=== PATIENT | male | born 1945 | race Caucasian/White ===

== ENCOUNTER 2019-05-20 09:13 | Inpatient (IN) | payer OTHER ==
[2019-05-19 20:00] VITALS: BP 193/82
[~2019-05-20] VITALS: Ht 177.8 cm; Wt 102.3 kg
--- NOTE | ~2019-05-20 | HEMODYNAMI ---
PATIENT:ARELIS OTT MEDICAL RECORD: [id number] : 47 [id number] ADMISSION DATE: 05/20/19 Generatedon:05/21/201910:28 Patient name: ARELIS OTT Patient #: [id number] SSN: [id number] : 1945 Date of study: 05/21/2019 Page: Of Hemodynamic Procedure Report Patient Data Patient Demographics Procedure consent was obtained First Name: ARELIS Gender: Male Last Name: TRU : 1945 Middle Initial: JAREK Age: 73 year(s) Patient #: [id number] Race: SSN: [id number] Additional ID: [id number] Contact details Address: [address] [place] [address] State: [place] [facility] [place] [address] Past Medical History Allergies: No known allergies Admission Admission Data Admission Date: 05/20/2019 Admission Time: 11:35 Arrival Date: 05/21/2019 Arrival Time: 0:00 Admit Source: Emergency Insurance Payor: [facility] department [facility] Room #: D.2119 [facility] #: [id number] Height (in.): 70 BSA: 2.19 (m2) Height (cm.): 177.8 BMI: 32.28 (kg/m2) Weight (lbs.): 225 Weight (kg.): 102.06 Lab Results Lab Result Date: 05/21/2019 Lab Result Time: 10:00 Biochemistry Name Units Result Min Max BUN mg/dl 15 --(--*-)-- 7 18 Creatinine mg/dl 1.1 --(--*-)-- 0.6 1.3 CBC Name Units Result Min Max Hematocrit % 46.6 --(-*--)-- 42 54 Hemoglobin g/dl 16.5 --(--*-)-- 13.5 17.5 Procedure Procedure Types Cath Procedure Diagnostic Procedure LHC LHC w/Coronaries Sedation Charges Moderate Sedation up to 15 minutes PCI Procedure Coronary Stent Coronary Stent Initial Procedure Description Procedure Date Procedure Date: 05/21/2019 Procedure Start Time: 10:09 Procedure End Time: 10:24 Procedure Staff Name Function Narciso Herrera MD Performing Physician Екатерина Andujar RT Monitor Michele Artis RT Scrub Adrienne Cabezas RN Nurse Indication Non-Q wave NM CAD Procedure Data Cath Procedure Fluoroscopy Diagnostic fluoroscopy Total fluoroscopy Time: 4.7 time: 4.7 min min Diagnostic fluoroscopy Total fluoroscopy dose: dose: 1138 mGy 1138 mGy Contrast Material Contrast Material Type Amount (ml) Isovue 300 112 Entry Location Entry Primary Successful Side Size Upsize Upsize Entry Closure Rosa ccessful Closure Location (Fr) 1 (Fr) 2 (Fr) Remarks Device Remarks Radial Right 6 Fr Mechanical artery Short Compression Estimated blood loss: 5 ml Diagnostic catheters Device Type Used For End Catheter Placement DIAGNOSTIC Dolores 110cm 5 Multi-vessel Fr catheter ([id number]) Angiography Procedure Complications No complications Procedure Medications Medication Administration Route Dosage 0.9% NaCl I.V. 100 ml/hr Oxygen etCO2 Nasal cannula 2 l/min Lidocaine 2% added to field 20 Heparin Flush Bag added to field 2 bags (1000units/500ml NS) Radial Cocktail added to field 1 syringe (Verapamil 2mg/Nitro 400mcg/Heparin 1500units) Versed I.V. 2 mg Fentanyl I.V. 100 mcg Heparin Bolus I.V. 4000 units Hemodynamics Rest BSA: 2.19 (m2) O2 Consumption: Estimated: 256.98 (ml/min) O2 Consumption indexed : Estimated:117.34 (ml/min/m) Heart Rate: 75 (bpm) Pressure Samples Time Site Value (mmHg) Purpose Heart Use Rate(bpm) 10:12 LV 35/1,-1 Snapshot 82 Snapshots Pre Cath Intra NCS Post Cath Vital Signs Time Heart Resp SPO2 etCO2 NIBP (mmHg) Rhythm Pain Sedation Rate (ipm) (%) (mmHg) Status Level (bpm) 9:54:53 74 19 100 35.9 162/90(140) NSR 0 (11) 10(A) , No pain 9:59:31 77 18 99 38.9 176/90(139) NSR 0 (11) 10(A) , No pain 10:04:03 80 16 98 42 152/79(115) NSR 0 (11) 10(A) , No pain 10:08:40 79 16 97 25 147/80(115) NSR 0 (11) 10(A) , No pain 10:13:00 82 14 98 32.2 105/61(84) NSR 0 (11) 9(A) , No pain 10:17:59 82 13 98 27.6 Measuring NSR 0 (11) 9(A) , No pain 10:18:15 83 13 97 27.6 136/77(101) NSR 0 (11) 9(A) , No pain 10:22:42 82 16 97 28.4 145/83(110) NSR 0 (11) 10(A) , No pain Medications Time Medication Route Dose Verified Delivered Reason Not es Effectiveness by by 9:53:26 0.9% NaCl I.V. 100 Narciso Adrienne used for ml/hr Javier Cabezas hall monitor 9:53:32 Oxygen etCO2 2 l/min Narciso Adrienne used for Nasal Javier Cabezas procedure cannula RN 9:53:37 Lidocaine 2% added 20ml Narciso Narciso for local to vial Javier Herrera MD anesthetic field 9:53:41 Heparin Flush added 2 bags Narciso Narciso used for Bag to Javier Herrera MD procedure (1000units/500ml field NS) 9:53:47 Radial Cocktail added 1 Narciso Narciso used for (Verapamil to syringe Javier Herrera MD procedure 2mg/Nitro field 400mcg/Heparin 1500units) 10:08:23 Versed I.V. 2 mg Narciso Adrienne for sedation Javier Cabezas RN 10:08:34 Fentanyl I.V. 100 mcg Narciso Adrienne for sedation Javier Cabezas RN 10:17:00 Heparin Bolus I.V. 4000 Narciso Adrienne for stephanie ified units Javier Cabezas anticoagulation with Dr. JIMBO Herrera Procedure Log Time Note 9:31:38 Informed consent obtained and on chart 9:32:09 Patient Weight : 225 lbs 9:32:16 Patient Height : 70 inches 9:32:16 Insurance Payor : [facility] 9:32:29 Arrival Date: 05/21/2019 12:00:00 AM 9:34:23 Lab Result : Hemoglobin 16.5 g/dl 9:34:23 Lab Result : Creatinine 1.1 mg/dl 9:34:23 Lab Result : BUN 15 mg/dl 9:34:23 Lab Result : Hematocrit 46.6 % 9:35:31 Admit Source: Emergency department 9:35:46 ACC Patient presents with Non-STEMI CCS Anginal Class 4--Inability to carry out any physical activity w/o angina. Angina may occur at rest. 9:36:20 ACCPatient has been prescribed/administered the following anti-anginal medication within the last 2 weeks: Beta Kami, Calcium Channel Blockers 9:36:24 Procedure Status Urgent Heart Cath (IP). 9:36:26 Adrienne Cabezas RN sent for patient. Start room use. 9:38:42 Diagnostic Cath Status : Urgent 9:38:52 H&P Date Dictated: 05/20/2019 Within 30 days and on chart.. 9:39:04 Patient allergic to No known allergies 9:39:17 Indication : Non-Q wave NM 9:39:22 Indication : CAD 9:45:30 Time tracking: Call back (After hours or weekends) 9:45:37 Plan of Care:Hemodynamics will remain stable., Cardiac rhythm will remain stable., Comfort level will be maintained., Respiratory function will remain adequate., Patient/ family verbilizes understanding of procedure., Procedure tolerated without complication., Recovers from procedure without complications.. 9:45:41 Patient received from Med II to CCL 1 Alert and oriented. Tansferred to table in Supine position. 9:45:42 Warm blankets applied, and shyanne hugger turned on for patient comfort. 9:45:43 Correct patient and procedure confirmed by team. 9:45:43 ECG and BP/O2 sat monitors applied to patient. 9:45:44 Pre-procedure instructions explained to patient. 9:45:44 Pre-op teaching completed and patient verbalized understanding. 9:45:46 Family in patients room. 9:45:47 Patient NPO since Midnight. 9:45:49 Is the patient allergic to Iodine/contrast media? No. 9:53:15 Vital chart was started 9:53:26 0.9% NaCl 100 ml/hr I.V. was administered by Adrienne Cabezas RN; used for procedure; 9:53:32 Oxygen 2 l/min etCO2 Nasal cannula was administered by Adrienne Cabezas RN; used for procedure; 9:53:37 Lidocaine 2% 20ml vial added to field was administered by Narciso Herrera MD; for local anesthetic; 9:53:41 Heparin Flush Bag (1000units/500ml NS) 2 bags added to field was administered by Narciso Herrera MD; used for procedure; 9:53:47 Radial Cocktail (Verapamil 2mg/Nitro 400mcg/Heparin 1500units) 1 syringe added to field was administered by Narciso Herrera MD; used for procedure; 9:56:25 Baseline sample Acquired. 9:56:29 Rhythm: sinus rhythm 9:58:09 Was the patient premedicated? No 9:58:10 Is patient on blood thinner?Yes 9:58:13 ACC The patient was administered the following blood thiners within the last 24 hours: ACCPlavix 9:58:15 Patient diabetic? No. 9:58:18 Previous problem with sedation/anesthesia? No ? 9:58:20 Snore? Yes 9:58:21 Sleep apnea? No 9:58:22 Deviated septum? No 9:58:22 Opens mouth fully? Yes 9:58:23 Sticks out tongue? Yes 9:58:26 Airway obstruction? No ? 9:58:32 Dentures? Yes partials in 9:58:52 Pre procedure: right dorsailis pedis pulse 2+ Normal; easily identifiable; not easily obliterated 9:58:54 Pre procedure: left dorsailis pedis pulse 2+ Normal; easily identifiable; not easily obliterated 9:58:56 Patient pain scale 0/10 ?. 9:59:03 IV patent on arrival in right hand with 0.9% NaCl at KVO. 9:59:05 Lab results completed and on chart. 9:59:09 Right Radial & Right Groin area was prepped with chlora-prep and draped in sterile fashion 9:59:10 Alarms reviewed by R. N. 9:59:10 Sharps counted by scrub and verified by R.N. 10:03:35 2) 60-89 Mildly reduced kidney function, and other findings (as for stage 1) point to kidney disease. 10:04:05 Maximum allowable contrast dose (3.7 X eGFR X 0.75)190 ml. 10:05:16 Physician paged 10:06:42 Zero performed for pressure channel P1 10:07:29 Physician arrived 10:07:30 --------ALL STOP TIME OUT------ 10:07:31 Final Timeout: patient, procedure, and site verified with staff and physician. All members of the team are in agreement. 10:07:35 Right Radial & Right Groin site verified by team. 10:07:39 Fire Safety Assessment: A--An alcohol-based skin anteseptic being used preoperatively., C--Open oxygen or nitrous oxide is being used., D--An ESU, laser, or fiber-optic light is being used. 10:07:48 Sedation plan: IV Moderate Sedation Medication:Versed, Fentanyl 10:08:23 Versed 2 mg I.V. was administered by Adrienne Cabezas RN; for sedation; 10:08:34 Fentanyl 100 mcg I.V. was administered by Adrienne Cabezas RN; for sedation; 10:08:49 Use device set Radial Dx or PCI 10:08:51 ACIST Syringe (73952) opened to sterile field. 10:08:51 Medline Cath Pack ([id number]) opened to sterile field. 10:08:51 Bag Decanter (2002S) opened to sterile field. 10:08:52 ACIST Hand Control (64322) opened to sterile field. 10:08:52 ACIST Manifold (76224) opened to sterile field. 10:08:53 Tegaderm 4 x 4 (1626W) opened to sterile field. 10:08:55 SHEATH 6FR RAIN (2492231) opened to sterile field. 10:08:56 EMERALD Guide Wire (476-368) opened to sterile field. 10:09:01 MBrace Wrist Support ([id number]) opened to sterile field. 10:09:07 Procedure started. 10:09:07 Full Disclosure recording started 10:09:17 Local anesthetic to right radial artery with Lidocaine 2% by Narciso Herrera MD.INITIAL ACCESS ONLY 10:09:26 A 6 Fr Short sheath was inserted into the Right Radial artery 10:09:59 A DIAGNOSTIC Dolores 110cm 5 Fr catheter (231040) was advanced over the wire and used for Multi-vessel Angiography. 10:12:42 LV hemodynamics recorded. 10:12:43 LV gram done using AGUSTIN 10:12:46 Injector settings: Ml/sec: 5, Volume: 15, 10:12:53 EF : 60 % 10:13:27 LCA angiography performed. 10:13:30 Injector settings: Ml/sec: 3, Volume: 6, 10:14:26 RCA angiography performed. 10:14:29 Injector settings: Ml/sec: 3, Volume: 6, 10:14:51 Catheter removed. 10:14:54 Proceeding to intervention. 10:15:10 GUIDE 6FR XBLAD 3.5 catheter (60092662) opened to sterile field. 10:15:11 INFLATOR Merit BasixCompak (PS4146) opened to sterile field. 10:15:50 CHOICE PT Extra Support 182cm wire ([id number]) opened to sterile field. 10:16:15 6 Fr xblad 3.5 guide catheter was inserted over the wire 10:16:23 choice pt wire advanced. 10:16:25 Wire advanced across lesion. 10:17:00 Heparin Bolus 4000 units I.V. was administered by Adrienne Cabezas RN; for anticoagulation; verified with Dr. Herrera 10:22:15 Place stent Inflation Number: 1 A COBRA RX 2.5 X 12 Stent was prepped and advanced across the Mid LAD 85. The stent was deployed at 11 EJ for 0:10 (min:sec) . 10:22:22 Stent catheter was removed intact over wire. 10:22:23 Wire removed. 10:22:23 Guide catheter removed. 10:22:41 Sheath removed intact; hemostasis achieved with Mechanical Compression to the Right Radial artery. 10:22:43 Procedure ended.(Physican Out) 10:22:54 Fluoroscopy time 04.70 minutes. 10:22:59 Fluoroscopy dose: 1138 mGy 10:22:59 Flurop Dose total: 1138 10:23:08 Dose Area Product 08239 mGy/cm. 10:23:12 Contrast amount:Isovue 300 112ml. 10:23:14 Sharps counted by scrub and verified by R.N. 10:23:15 Insertion/operative site no bleeding no hematoma. 10:23:27 Post right radial artery:stable 10:23:29 Post Procedure Pulses reassessed and unchanged 10:23:32 Post procedure rhythm: unchanged. 10:23:36 Estimated blood loss: 5 ml 10:23:39 Post procedure instruction explained to patient.Patient verbalizes understanding. 10:23:39 Patient needs reinforcement of post procedure teaching. 10:23:51 Procedure type changed to Cath procedure, Diagnostic procedure, LHC, LHC w/Coronaries, Sedation Charges, Moderate Sedation up to 15 minutes, PCI procedure, Coronary Stent, Coronary Stent Initial 10:23:52 Procedure and supply charges have been captured, reviewed, submitted and are correct. 10:23:57 Procedure Complication : No complications 10:24:00 Vital chart was stopped 10:24:01 See physician's report for complete and final results. 10:24:04 Report given to Med II. 10:24:07 Patient transfered to Med II with Stretcher. 10:24:09 Procedure ended. 10:24:09 Full Disclosure recording stopped 10:24:14 ACC-PCI Only Patient was given prescriptions, or instructed by Narciso Herrera MD to start/continue the following medications upon discharge: Plavix 10:24:16 End room use (Document Last) 10:27:22 [place] band inflated with 10cc of air. 10:27:51 ZEPHYR REGULAR TR BAND (471702) opened to sterile field. Intervention Summary Intervention Notes Time ActionType Lesion and Equipment Action# Pressure Duration Attributes Used 10:22:15 Place stent Mid LAD COBRA RX 1 11 00:10 2.5 X 12 Stent Device Usage Item Name Manufacture Quantity Catalog Number Hospital Part Current Minimal Lot# / Charge Number Stock Stock Serial# Code ACIST Syringe Acist 1 69207 980100 371648 480380 20 (10123) Medical Systems Inc Medline Cath Medline 1 [id number] 831975 04366 488108 5 Pack ([id number]) Bag Decanter Microtek 1 2001S 327089 92720 824669 5 (2001S) Medical Inc. ACIST Hand Acist 1 69261 462297 946199 147004 5 Control Medical (09027) Systems Inc ACIST Manifold Acist 1 82658 498637 535836 860829 5 (45164) Medical Systems Inc Tegaderm 4 x 4 3M 1 1626W 754406 796276 855377 5 (1626W) SHEATH 6FR Cardinal 1 5525578 420758 5144171 459378 5 RAIN (7835820) [facility] Guide Cardinal 1 502-455 576338 100701 953679 5 Wire (517-200) Health MBrace Wrist Advanced 1 140-0250-00 227453 36691 759419 5 Support Vascular ([id number]) Dynamics DIAGNOSTIC Terumo 1 40-5013 717493 229766 060387 5 Dolores 110cm 5 Fr catheter (305138) GUIDE 6FR Cardinal 1 [id number] 145887 697292 536672 10 XBLAD 3.5 Health catheter (36779390) INFLATOR Merit Merit 1 BC4487 624544 729744 169141 15 [facility]High[facility] HospitalAccel[facility] IO Medical (AC7901) CHOICE PT [place] 1 [id number] 330229 336295 665053 5 Extra Support Scientific 182cm wire ([id number]) COBRA RX 2.5 X Celonova 1 624942 [id number] 2509399 94 9 [id number] 12 stent Biosciences (601-40-03384) ZEPHYR REGULAR Cardinal 1 105732 395067 0694257 464535 5 TR BAND Health (636286) Signature Audit [place] Stage Time Signature Unsigned Intra-Procedure 05/21/2019 Екатерина Andujar 10:28:36 AM RT(R) Signatures Performing Physician : Signature : Narciso Herrera MD Date : Time : Monitor : Екатерина Andujar RT Signature : Date : Time : Nurse : Adrienne Cabezas RN Signature : Date : Time : [facility] [address] [place], [place] [address]
[2019-05-20 09:41] LABS: BASOPHILS 0.3 % (0-2); EOSINOPHILS 0.1 % (0-7); HEMATOCRIT 46.6 % (42.0-54.0); HEMOGLOBIN 16.5 g/dL (13.5-17.5); IMMATURE GRANULOCYTES 0.3 % (0-5); LYMPHOCYTES 7.9 % (15-50); MCH 29.7 pg (26.0-34.0); MCHC 35.4 g/dL (31.0-37.0); MCV 83.8 fL (80.0-100.0); MEAN PLATELET VOLUME 11.1 fL (7.4-10.4); MONOCYTES 4.6 % (2-11); NEUTROPHILS 86.8 % (40-80); PLATELET COUNT 194 10x3/uL (130-400); RBC 5.56 10x6/uL (4.20-6.10); RDW 13.5 % (11.5-14.5); WBC 14.2 10x3/uL (4.8-10.8)
--- NOTE | 2019-05-20 09:45 | NUR ---
PT CONTINUES TO C/O CP 8 AT THIS TIME. 2ND NITRO GIVEN.
--- NOTE | 2019-05-20 09:56 | NUR ---
PT CONTINUES TO C/O PAIN 03/06 AT THIS TIME. PT GIVEN 3RD NITRO.
[2019-05-20 10:00] VITALS: BP 150/94
[2019-05-20 10:14] LABS: APTT 26.7 SECONDS (22.8-39.4); INR 1.03 (0.85-1.17)
[2019-05-20 10:23] LABS: ALBUMIN 4.3 g/dL (3.4-5.0); ALKALINE PHOSPHATASE 92 U/L (46-116); ALT (SGPT) 27 U/L (10-68); BILIRUBIN - TOTAL 0.57 mg/dL (0.2-1.3); CALC OSMOLALITY 276 mosm/kg (275-300); CALCIUM 9.4 mg/dL (8.5-10.1); CARBON DIOXIDE 26.2 mmol/L (21.0-32.0); CHLORIDE - SERUM 99 mmol/L (98-107); CREATININE - SERUM 1.1 mg/dL (0.6-1.3); GLUCOSE 163 mg/dL (74-106); POTASSIUM - SERUM 3.9 mmol/L (3.5-5.1); PROTEIN - SERUM 8.6 g/dL (6.4-8.2); SODIUM 136 mmol/L (136-145); UREA NITROGEN 15 mg/dL (7-18); eGFR NON AFRICAN AMERICAN 70 mL/min (90-120)
[2019-05-20 10:30] VITALS: BP 191/110
[2019-05-20 10:37] LABS: CREATINE KINASE 121 UL (21-232); MAGNESIUM - SERUM 1.7 mg/dL (1.8-2.4)
--- NOTE | 2019-05-20 10:47 | NUR ---
CRITICAL TROPONIN CALLED BY [facility] AT THIS TIME. TROPONIN 0.180. NOTIFIED EDP
[2019-05-20 11:11] VITALS: BP 163/86
--- NOTE | 2019-05-20 11:40 | NUR ---
ULTRASOUND AT BEDSIDE
--- NOTE | 2019-05-20 12:30 | NUR ---
RECIEVED FROM ER. ALERT AND ORIENTED. C/O PAIN IN HEAD, ABD AND A LITTLE IN HIS CHEST.FAMILY AT BEDSIDE. TELEMERTY SHOWS SR.CALL PLACED TO DR SOLO AND ORDERS RECIEVED
[2019-05-20 13:08] VITALS: BP 206/99
[2019-05-20 15:56] VITALS: BP 206/99; Ht 177.8 cm; Wt 102.3 kg
--- NOTE | 2019-05-20 16:01 | NUR ---
LYING QUIETLY. DENIES ANY NEEDS AT PRESENT TIME. TELEMEERTY SHOWS SB.
--- NOTE | 2019-05-20 16:14 | NUR ---
ASSESSMENT COMPLETE RESP UNLABORED NAD NOTED RESP UNLABORED SKIN W/D COLOR WNL PT DENIES ANY NEEDS OR DISCOMFORT AT THIS TIME
[2019-05-20 17:06] VITALS: BP 185/86
--- NOTE | 2019-05-20 17:54 | NUR ---
STATES HE FEELS BETTER BUT STILLHAS ABD PAIN. WILL MONITOR
--- NOTE | 2019-05-20 18:25 | NUR ---
RESTING QUIETLY WITH EYWS CLOSED, TELEMERTY SHOWS SR. WILL MONITOR
--- NOTE | 2019-05-20 20:18 | NUR ---
INITIAL ROUNDS COMPLETED. PT RESTING IN BED WITH S/S PAIN/DISCOMFORT. BEDTIME MEDS PROVIDED. BP 193/82, SCHEDULED LOPRESSOR GIVEN AND WILL MONITOR BP AGAIN LATER TO SEE IF PT NEEDS PRN BP MED ALSO. PT ALERT/ORIENTED. PAIN 7/10 IN HIS ABDOMEN. INSTRUCTED PT ON BEING NPO AFTER MIDNIGHT FOR HEART CATH IN AM. EXPLAINED PROCEDURE AND WHAT TO EXPECT TO PATIENT. CPOC. CALL LIGHT IN REACH.
[2019-05-20] MEDS ORDERED: PRUDOXIN45 GM (21:44)
[2019-05-20] MEDS ORDERED: DOXEPIN HCL10 MG (21:45)
[2019-05-20] MEDS ORDERED: ACETAMINOPHEN500 M1 PO (21:46)
--- NOTE | 2019-05-20 22:44 | NUR ---
PT'S SON WAS UP VISITING. EXPLAINED THAT HOME MEDS NEED TO BE VERIFIED, THAT PAIN ISSUES WILL BE HANDLED WITH THE ORDERED MORPHINE IV. PT STATES HE SHOULD BE OK THAT THE ONLY HOME MED HE TAKES IS SINEQUAN BUT HE HAS NO IDEA OF THE DOSE. SON WILL BRING MEDS IN AM.
[2019-05-21] VITALS: BP 168/74
--- NOTE | 2019-05-21 02:56 | NUR ---
PT RESTING IN BED WITH EYES CLOSED. RESPS EVEN/NONLABORED. NPO FOR AM HEART CATH. CPOC. CALL LIGHT IN REACH.
--- NOTE | 2019-05-21 03:14 | NUR ---
PT AWAKENED AND REQUESTED PAIN MED FOR ABDOMINAL DISCOMFORT 04/05. IV MORPHINE 4MG SIVP ADMINISTERED. CPOC. CALL LIGHT IN REACH.
[2019-05-21 04:00] VITALS: BP 153/65
--- NOTE | 2019-05-21 07:30 | NUR ---
RECEIVED PT IN BED AAOX4 RESP UNLABORED PT DENIES ANY NEEDS OR DISCOMFORT NAD NOTED
[2019-05-21 08:42] VITALS: BP 150/74
--- NOTE | 2019-05-21 09:40 | NUR ---
TO RAIL TRANSPORTATION TABELER VIA BED
--- NOTE | 2019-05-21 10:45 | NUR ---
RECEIVED PT BACK FROM DISTRIBUTED GENERATION PROJECT MANAGER VIA BED AAOX4 RESP UNLABORED VSS BAND AND BRACE INTACT TO RT WRIST NO SIGNS OF BLEEDING PPPX4 WILL CONTINUE TO MONITOR
[2019-05-21] MEDS ORDERED: PLAVIX75 MG PO (11:49)
[2019-05-21] MEDS ORDERED: NORVASC10 MG PO (11:50)
[2019-05-21] MEDS ORDERED: METOPROLOL TART50 MG PO (11:50)
[2019-05-21] MEDS ORDERED: ASPIRIN81 MG PO (11:51)
[2019-05-21] MEDS ORDERED: PRAVACHOL20 MG PO (11:51)
[2019-05-21 12:59] VITALS: BP 117/69
--- NOTE | 2019-05-21 16:15 | NUR ---
REVIEWED DISCHARGE INSTRUCTIONS WITH PT STATES UNERSTANDING COPY GIVEN DCD SALINE LOCK TO RT HAND WITH IV CATHETEER INTACT SITE FREE OF REDNESS OR EDEMA PT DISCHARGED HOME LEFT UNIT VIA W/C IN STABLE CONDITION WITH ALL PERSONAL BELONGINGS
--- NOTE | 2019-05-23 09:26 | MORECARE ---
CASE MANAGEMENT DISCHARGE SUMMARY PATIENT: ARELIS OTT UNIT: [id number] ADM DATE: 05/20/19 AGE: 73 : [birth year] SEX: M ROOM/BED: D.2119 AUTHOR: ASPEN [place] PHYSICIAN: REFERRING PHYSICIAN: RAYMOND SOLO MD DATE OF SERVICE: 05/23/19 Discharge Plan Patient Name: [facility]LIS [facility]TT [facility] [facility] 1945 Planned Disposition: Home Anticipated Discharge Date: 05/21/19 Discharge Date: 05/21/2019 Expected LOS: 1 Initial Reviewer: [email or web address] Initial Review Date: 05/23/2019 Generated: 05/23/19 10:25 am Patient Name: ARELIS OTT Page 92468 at 0926 All edits/amendments must be made on the electronic document DICTATION DATE: 05/23/19924 CHIP SILO TENDER: RAFAEL 05/23/19924 RPT#: [id number] DC DATE:05/21/19 STATUS: DIS IN [facility] [address] [facility] [place] [address] END OF REPORT
--- NOTE | 2019-05-23 11:09 | EC ---
PATIENT:ARELIS OTT DATE OF SERVICE: 05/20/19 SEX: M MEDICAL RECORD: [id number] DATE OF : [birth year] LOCATION:D.M2 D.211 AGE OF PATIENT: 73 ADMISSION DATE: 05/20/19 REFERRING PHYSICIAN: INTERPRETING PHYSICIAN: RAYMOND HERRERA MD ECHOCARDIOGRAM REPORT ECHO CHARGES 4 ECHO COMPLETE Date: 05/20/19 CLINICAL DIAGNOSIS: TN ECHOCARDIOGRAPHIC MEASUREMENTS (adult normal given) AC root (d.<3.7cm) 2.3 cm LV Septum d (<1.2 cm> 0.9 cm Valve Excursion 1.2 cm LV Septum (systole) 1.0 cm Left Atria (s.<4.0cm> 3.3 cm LVPW d(<1.2cm) 1.0 cm RV (d.<2.3cm) 2.8 cm LVPW (sytole) 1.1 cm LV diastole(<5.6CM) 3.5 cm MV E-F(>70mm/sec) cm LV systole 2.9 cm LVOT Diameter 2.2 cm MV exc.(>10mm) cm Est.ejection fraction (50-75%) % DOPPLER: LVIT cm/sec A 68 cm/sec E 47 cm/sec LA cm/sec RVSP 18.8 mmHg LVOT 63 cm/sec AOP1/2T m/s Asc. Ao 121 cm/sec RVOT 61 cm/sec RA cm/sec PA 68 cm/sec AV Gradient Peak 18.0 mmHg AV Mean 10.8 mmHg AV Area 1.1 cm MV Gradient Peak 3.2 mmHg MV Mean 1.3 mmHg MV Area cm COMMENTS: Price Clerk: Pieter [facility] Pharmacy Data Analyst: 1 Dr. Herrera TAPE# PACS Pericardial Effusion N DATE OF SERVICE: Echocardiogram FINDINGS: 1. Left ventricular chamber size is within normal limits. Left ventricular systolic function is normal. Overall ejection fraction estimated at 55%. 2. Left atrium, right atrium, and right ventricular chamber sizes are within normal limits. 3. Valvular structures: Aortic valve demonstrates mild calcific aortic ECHOCARDIOGRAM REPORT [id number] ARELIS OTT stenosis, valve area calculates to 1.8 cm-squared. There is a gradient of 11 mm across the valve. The remaining valvular structures have normal structure and motion. 4. Doppler interrogation elsewise reveals mild aortic insufficiency. No other valvular insufficiency or stenosis. Pulmonary systolic pressure is normal estimated at 18 mmHg. 5. No evidence of pericardial effusion or left ventricular thrombus. TRANSINT:[id number] Voice Confirmation ID: [id number] DOCUMENT ID: [id number] RAYMOND HERRERA MD at 1109 CC: [id number] DICTATION DATE: 05/21/19 1038 SUPERVISOR FIBER LOCKING: 05/21/19 1054 DIS IN 05/21/19 [facility] [address] [place] [address]
--- NOTE | 2019-05-23 11:09 | HP ---
PATIENT: ARELIS DURHAM MEDICAL RECORD: [id number] ACCOUNT: [id number] LOCATION:[facility] D.2119 : 47 ADMISSION DATE: 05/20/19 PCP: DOCTOR BRIANA HISTORY AND PHYSICAL EXAMINATION DIAGNOSES: 1. Non-Q-wave myocardial infarction. 2. Coronary artery disease. 3. Hypertension. 4. Abdominal pain. HISTORY OF PRESENT ILLNESS: Mr. Durham presents with 1 week of increasing chest pain. His troponin is positive for a non-Q-wave myocardial infarction. He continues to have mild pain. He as well has been having abdominal pain. He had an ultrasound of his aorta done, had incidental finding of cholelithiasis. His pain started radiating to his left arm and his chest area. He as well has had mild shortness of breath. He does not have a cardiac history. He has not had a cardiac workup in the past. He has hypertension for which he is not on any meds. PHYSICAL EXAMINATION: CONSTITUTIONAL/GENERAL APPEARANCE: Well nourished, well developed, appears stated age. EYES: Lids and conjunctivae noninjected. No discharge. No pallor. ENT: Lips within normal limit. No cyanosis. No pallor. NECK: Carotid arteries, bilateral normal upstroke. No bruits. No thrills. No jugular venous pressure or distention. CERVICAL LYMPH NODES: Nontender. Nonenlarged. THYROID: Not enlarged. No nodules. CARDIOVASCULAR: Precordial exam, nondisplaced. No heaves or pericardial thrills. Rate and rhythm, regular. Heart sounds, normal S1, normal S2. No S3, no gallop, no rub. Systolic murmur, not heard. Diastolic murmur, not heard. RESPIRATORY: Respiratory effort, unlabored. Normal curvature. No thoracic deformity. No chest wall tenderness. Percussion, resonant. Auscultation, clear. No wheezes, no rales, no rhonchi. ABDOMEN: Soft, nondistended, nontender. No abdominal pain, no vomiting and normal appetite. MUSCULOSKELETAL: No joint tenderness, normal gait, normal tone. SKIN: Warm and dry. OVERALL IMPRESSION: Non-Q-wave myocardial infarction. At this time, we will start him on Lopressor, Norvasc, aspirin, and Plavix. Plan for cardiac catheterization in the a.m. We will get an echocardiogram today to delineate the ejection fraction for any possible valvular heart disease. We will deal with the cholelithiasis after he is stable from a cardiac standpoint. TRANSINT:[id number] Voice Confirmation ID: [id number] DOCUMENT ID: [id number] HISTORY AND PHYSICAL [id number] ARELIS DURHAM, RAYMOND MILLAN at 1109 CC: [id number] DICTATION DATE: 05/20/19 1500 CLOTH WIRE WEAVER: 05/20/19 1534 DIS IN 05/21/19 [id number] [place] [address]
--- NOTE | 2019-05-23 11:09 | DS ---
PATIENT:ARELIS DURHAM :47 MEDICAL RECORD: [id number] DISCHARGE SUMMARY ADMISSION DATE: 05/20/19 DISCHARGE DATE: 05/21/19 DATE OF SERVICE: 05/21/2019 DISCHARGE DIAGNOSES: 1. Non-Q-wave myocardial infarction. 2. Percutaneous transluminal coronary angioplasty stent left anterior descending this admission. 3. Hypertension. 4. Hyperlipidemia. HOSPITAL COURSE: Mr. Durham presents with non-Q-wave myocardial infarction, underwent cardiac catheterization revealing single vessel disease of the LAD, underwent successful PTCA stent of the LAD. His hypertension was treated with metoprolol and Norvasc, hyperlipidemia is treated with Pravachol, was discharged home with the addition of those as well as Plavix and aspirin to his medical regimen. Follow up with [facility] in 1 month. TRANSINT:[id number] Voice Confirmation ID: [id number] DOCUMENT ID: [id number] RAYMOND SOLO MD at 1109 CC: [id number] DICTATION DATE: 05/21/19 1028 ON CALL PHARMACY TECHNICIAN: 05/21/19 1050 DIS IN 05/21/19 [address] [place] [address]
--- NOTE | 2019-05-23 11:09 | OP ---
PATIENT NAME: ARELIS OTT MEDICAL RECORD: [id number] :47 LOCATION:D.M2 D.2119 ADMISSION DATE:05/20/19 SURGEON: RAYMOND SOLO MD DATE OF OPERATION: 05/21/2019 PROCEDURES: 1. PTCA stent LAD. 2. Left heart catheterization. 3. Selective coronary angiography. 4. Left ventriculogram. INDICATION: Non-Q-wave with myocardial infarction. PROCEDURE IN DETAIL: After informed consent was obtained and after detailed description of risks, benefits as well as alternative therapies, the patient elected to proceed with angiogram and angioplasty. The right radial area was prepped and draped in normal sterile fashion. Right radial artery was cannulated via modified Seldinger technique with placement of 6-Iraqi sheath. All catheters exchanged through this sheath. FINDINGS: Left ventriculogram was performed in standard 30-degree AGUSTIN view, reveals good cardiac wall motion, ejection fraction 55%. SELECTIVE CORONARY ANGIOGRAPHY: 1. Left main showed no significant angiographic disease. 2. Left anterior descending has 80-85% stenosis in the mid vessel. 3. Left circumflex has moderate irregularities, but no flow-limiting stenosis. 4. Right coronary has moderate irregularities, but no flow-limiting stenosis throughout. PTCA STENT OF THE LAD: The stent used 2.5 x 12 mm Cobra. Result was 0% residual stenosis. OVERALL IMPRESSION: Successful percutaneous transluminal angioplasty stent of the left anterior descending going from 80% to 85% initial stenosis with a non-Q-wave myocardial infarction to 0% residual stenosis. TRANSINT:[id number] Voice Confirmation ID: [id number] DOCUMENT ID: [id number] RAYMOND SOLO MD at 1109 CC: [id number] DICTATION DATE: 05/21/19 1027 PADDER CUSHION: 05/21/19 1043 DIS IN 05/21/19 [address] [place] [address]
== END 2019-05-21 16:15 | disposition home or self-care (01) | DRG 249 ==
LOC: D.ER 09:13 → D.M2 11:35
PROVIDERS: Emergency Medicine; ADMIT Internal Medicine Interventional Cardiology; ATTEND Internal Medicine Interventional Cardiology
PROC: B2111ZZ Fluoroscopy of Multiple Coronary Arteries using Low Osmolar Contrast (ICD-10-PCS; 2019-05-21)
PROC: B2151ZZ Fluoroscopy of Left Heart using Low Osmolar Contrast (ICD-10-PCS; 2019-05-21)
PROC: 02703DZ Dilation of Coronary Artery, One Artery with Intraluminal Device, Percutaneous Approach (ICD-10-PCS; principal; 2019-05-21 09:30)
PROC: 4A023N7 Measurement of Cardiac Sampling and Pressure, Left Heart, Percutaneous Approach (ICD-10-PCS; 2019-05-21 09:30)
DX: I21.4 Non-ST elevation (NSTEMI) myocardial infarction (principal); I25.10 Atherosclerotic heart disease of native coronary artery without angina pectoris; I10 Essential (primary) hypertension; K80.20 Calculus of gallbladder without cholecystitis without obstruction

== ENCOUNTER 2019-05-22 07:59 | Inpatient (IN) | payer MEDICARE, OTHER ==
[~2019-05-22] VITALS: Ht 177.8 cm; Wt 104.3 kg
[~2019-05-22 07:59] MED LIST: ACETAMINOPHEN500 M1 PO; ASPIRIN81 MG PO; DOXEPIN HCL10 MG; METOPROLOL TART50 MG PO; NORVASC10 MG PO; PLAVIX75 MG PO; PRAVACHOL20 MG PO; PRUDOXIN45 GM
[2019-05-22 08:51] LABS: BASOPHILS 0.4 % (0-2); EOSINOPHILS 1.2 % (0-7); HEMATOCRIT 47.4 % (42.0-54.0); HEMOGLOBIN 16.5 g/dL (13.5-17.5); IMMATURE GRANULOCYTES 0.3 % (0-5); LYMPHOCYTES 10.3 % (15-50); MCH 29.8 pg (26.0-34.0); MCHC 34.8 g/dL (31.0-37.0); MCV 85.6 fL (80.0-100.0); MEAN PLATELET VOLUME 11.3 fL (7.4-10.4); NEUTROPHILS 77.8 % (40-80); PLATELET COUNT 190 10x3/uL (130-400); RBC 5.54 10x6/uL (4.20-6.10); RDW 13.8 % (11.5-14.5); WBC 12.8 10x3/uL (4.8-10.8)
[2019-05-22 09:02] LABS: ALBUMIN 3.8 g/dL (3.4-5.0); BILIRUBIN - TOTAL 3.2 mg/dL (0.2-1.3); CALCIUM 9.3 mg/dL (8.5-10.1); CARBON DIOXIDE 22.9 mmol/L (21.0-32.0); CREATININE - SERUM 1.1 mg/dL (0.6-1.3); PROTEIN - SERUM 8.5 g/dL (6.4-8.2)
[2019-05-22 09:03] LABS: POTASSIUM - SERUM 4.9 mmol/L (3.5-5.1)
[2019-05-22 10:00] VITALS: BP 137/62
[2019-05-22 10:21] VITALS: BP 167/79
--- NOTE | 2019-05-22 11:56 | NUR ---
SPOKE WITH PHARMACY TO REQUEST ORDERED ABT BE SENT TO ED.
--- NOTE | 2019-05-22 12:00 | NUR ---
SPOKE WITH EDP, DR. PALMER TO CLARIFY MEDICATION ORDERS ON EMAR. PER EDP, STOP NS INFUSION AT RATE OF 250ML/HOUR, INITIATE NS INFUSING AT RATE OF 125ML/HOUR.
[2019-05-22 12:01] VITALS: BP 158/62
[2019-05-22 12:15] LABS: APTT 27.5 SECONDS (22.8-39.4); INR 1.17 (0.85-1.17); PROTIME 14.4 SECONDS (11.6-15.0)
--- NOTE | 2019-05-22 12:24 | NUR ---
ORDERED ABT NOT DELIVERED TO ED YET, PT GOING TO ASSIGNED ROOM 2240. RECEIVING NURSE AWARE THAT PT'S ORDERED ABT NOT YET ADMINISTERED.
[2019-05-22 13:48] VITALS: BP 182/93; BMI 33.0
[2019-05-22 18:02] VITALS: BP 151/70
--- NOTE | 2019-05-22 19:02 | NUR ---
ALERT AND ORIENTED, RESTING IN BED. NO C/O PAIN, BONSAI CULTURIST DILAUDID MANAGING PAIN. NO S/S OF ACUTE DISTRESS NOTED. PT DENIES ANY NEEDS. CALL LIGHT IN REACH.
[2019-05-22 20:00] VITALS: BP 139/59
--- NOTE | 2019-05-22 22:00 | NUR ---
A&O X 4. AMBULATORY W/O ASSISTANCE. REPORTS NAUSEA W/O VOMITTING. REQUESTS ICE CHIPS. DENIES NEEDS AT THIS TIME. WILL CONTINUE TO MONITOR.
[2019-05-23 00:06] LABS: APPEARANCE CLEAR (CLEAR); BILIRUBIN NEGATIVE (NEGATIVE); COLOR DK YELLOW (YELLOW); GLUCOSE NEGATIVE (NEGATIVE); KETONE SMALL mg/dL (NEGATIVE); NITRITE NEGATIVE (NEGATIVE); PROTEIN 1+ mg/dL (NEGATIVE); SPECIFIC GRAVITY 1.025 (1.005-1.020); UROBILINOGEN NORMAL (NORMAL)
[2019-05-23 00:16] LABS: BACTERIA FEW /hpf (NONE SEEN); EPITHELIAL CELLS 0-5 /hpf (0-5); RED CELLS - URINE 0-5 /hpf (0-5); WHITE CELLS - URINE 0-5 /hpf (0-5)
[2019-05-23 04:00] VITALS: BP 134/60
[2019-05-23 07:33] LABS: ALKALINE PHOSPHATASE 243 U/L (46-116); BILIRUBIN - INDIRECT 0.94 mg/dL (0.00-1.00); BILIRUBIN - TOTAL 5.34 mg/dL (0.2-1.3); CALC OSMOLALITY 289 mosm/kg (275-300); CALCIUM 8.4 mg/dL (8.5-10.1); CARBON DIOXIDE 26.3 mmol/L (21.0-32.0); CHLORIDE - SERUM 106 mmol/L (98-107); GLUCOSE 103 mg/dL (74-106); PROTEIN - SERUM 6.5 g/dL (6.4-8.2); SODIUM 142 mmol/L (136-145); UREA NITROGEN 31 mg/dL (7-18); eGFR NON AFRICAN AMERICAN 78 mL/min (90-120)
[2019-05-23 07:34] LABS: ALT (SGPT) 497 U/L (10-68)
--- NOTE | 2019-05-23 07:48 | NUR ---
PT RESTING IN BED WITH EYES OPEN, ALERT AND ORIENTED. IV LOCATED TO RIGHT FOREARM RUNNING NS @ 175, DILAUDID FISHER NET PUMP ALSO PRESENT. NO S/S OF DISTRESS AT THIS TIME, DENIES NEEDS. WILL CONTINUE TO MONITOR.
[2019-05-23 08:44] LABS: BASOPHILS 0.4 % (0-2); HEMATOCRIT 40.1 % (42.0-54.0); HEMOGLOBIN 13.4 g/dL (13.5-17.5); IMMATURE GRANULOCYTES 0.2 % (0-5); LYMPHOCYTES 12.3 % (15-50); MCH 29.2 pg (26.0-34.0); MCHC 33.4 g/dL (31.0-37.0); MCV 87.4 fL (80.0-100.0); MEAN PLATELET VOLUME 11.1 fL (7.4-10.4); MONOCYTES 12.9 % (2-11); NEUTROPHILS 70.2 % (40-80); PLATELET COUNT 160 10x3/uL (130-400); RBC 4.59 10x6/uL (4.20-6.10); RDW 13.9 % (11.5-14.5)
[2019-05-23 08:46] LABS: WBC 9.3 10x3/uL (4.8-10.8)
[2019-05-23 09:08] VITALS: BP 138/66
[2019-05-23 12:17] VITALS: BP 142/61
[2019-05-23 15:07] VITALS: Ht 177.8 cm; Wt 104.3 kg
--- NOTE | 2019-05-23 16:39 | MORECARE ---
CASE MANAGEMENT DISCHARGE SUMMARY PATIENT: ARELIS OTT UNIT: [id number] ADM DATE: 05/22/19 AGE: 73 : 46 SEX: M ROOM/BED: D.2240 AUTHOR: ALBAN,DOC PHYSICIAN: REFERRING PHYSICIAN: HOMERO ROBERTS MD DATE OF SERVICE: 05/23/19 Discharge Plan Patient Name: ARELIS OTT Facility: [facility]:[place] : 1945 Planned Disposition: Home Anticipated Discharge Date: Discharge Date: Expected LOS: Initial Reviewer: [email or web address] Initial Review Date: 05/23/2019 Generated: 05/23/19 5:38 pm Comments DCP- Discharge Planning Updated by [email or web address]: Yadira Smith on 05/23/19 3:[address] Patient Name: ARELIS OTT Admission Status: ER Accout number: [id number] Admission Date: 05-22-2019 : 1945 Admission Diagnosis: Attending: HOMERO ROBERTS Current LOS: 1 Anticipated DC Date: Planned Disposition: Home Primary Insurance: [email or web address] ADMINISTRATION Discharge Planning Comments: CM met with patient to complete initial dc planning assessment. CM educated patient on the CM role and verbal consent given by patient to complete assessment. Patient lives at home alone. At discharge patient plans to return and feels this is a safe discharge. CM discussed availability of home health, rehab services, and medical equipment. Patient denied known discharge needs at this time. I spoke with the [facility] human resources benefits manager and informed her of admission. She is to fax me a paper for patient to sign stating that he would consent to transfer. CM will continue to follow and will assist as needed with dc plans/needs. Tapper Bit: Yadira Smith DCPIA - Discharge Planning Initial Assessment Updated by [email or web address]: Yadira Smith on 05/23/19 4:33 pm * Is the patient Alert and Oriented? Yes * How many steps to enter\exit or inside your home? 0/0 * PCP [place] doctor in [facility] or [place] * Pharmacy [facility] on [address] * Preadmission Environment Home Alone * ADLs Independent * Equipment None * List name and contact numbers for known caregivers / representatives who currently or will assist patient after discharge: Nima rowley - [phone] * Verbal permission to speak to the caregivers and representatives has been obtained from the patient. Yes * Community resources currently utilized [facility] Services * Please name any agencies selected above. [place] or [facility] * Additional services required to return to the preadmission environment? No * Can the patient safely return to the preadmission environment? Yes * Has this patient been hospitalized within the prior 30 days at any hospital? Yes Patient Name: ARELIS OTT Page 85507 at 1639 All edits/amendments must be made on the electronic document DICTATION DATE: 05/23/191637 CORRESPONDENT: RAFAEL 05/23/191637 RPT#: [id number] DC DATE: STATUS: ADM IN [facility] [address] [place] [address] END OF REPORT
[2019-05-23 16:45] VITALS: BP 89/60
[2019-05-23 20:00] VITALS: BP 128/50
--- NOTE | 2019-05-23 20:00 | NUR ---
ALERT RESTING IN BED, DENIES PAIN OR NEEDS AT THSI TIME HAS SONG PLUGGER IN USE FOR [AIN CONTROL, SEE SHIFT ASSESSMENT, CALL LEXY PAREKH
[2019-05-24] VITALS: BP 126/50
[2019-05-24 04:00] VITALS: BP 133/43
[2019-05-24 06:25] LABS: BASOPHILS 1.1 % (0-2); HEMATOCRIT 37.2 % (42.0-54.0); HEMOGLOBIN 12.5 g/dL (13.5-17.5); IMMATURE GRANULOCYTES 0.3 % (0-5); LYMPHOCYTES 16.2 % (15-50); MCH 28.9 pg (26.0-34.0); MCHC 33.6 g/dL (31.0-37.0); MCV 85.9 fL (80.0-100.0); MEAN PLATELET VOLUME 11.2 fL (7.4-10.4); NEUTROPHILS 61.4 % (40-80); RBC 4.33 10x6/uL (4.20-6.10); RDW 13.9 % (11.5-14.5)
[2019-05-24 06:41] LABS: ALBUMIN 2.6 g/dL (3.4-5.0); ANION GAP 13.5 mmol/L (8-16); BILIRUBIN - TOTAL 5.36 mg/dL (0.2-1.3); CALCIUM 8.2 mg/dL (8.5-10.1); CARBON DIOXIDE 24.1 mmol/L (21.0-32.0); CREATININE - SERUM 1.1 mg/dL (0.6-1.3); POTASSIUM - SERUM 3.6 mmol/L (3.5-5.1); PROTEIN - SERUM 6.3 g/dL (6.4-8.2)
[2019-05-24 06:45] LABS: PLATELET COUNT 193 10x3/uL (130-400); WBC 6.6 10x3/uL (4.8-10.8)
[2019-05-24 08:48] VITALS: BP 142/64
[2019-05-24 10:20] LABS: AMYLASE - SERUM 34 U/L (25-115); LIPASE 248 U/L (73-393)
[2019-05-24 11:43] VITALS: BP 155/71
[2019-05-24 15:52] VITALS: BP 150/71
--- NOTE | 2019-05-24 19:38 | NUR ---
LYING IN BED, ALERT AND ORIENTED. ABLE TO VOICE ALL NEEDS, DENIES ANY PAIN AT THIS TIME. WILL NOTE ANY CHANGE.
[2019-05-24 20:00] VITALS: BP 134/72
--- NOTE | 2019-05-24 23:40 | NUR ---
I have reviewed this patient and I concur with the Shift Assessment completed by the Licensed Practical Nurse today this shift.
[2019-05-25 04:00] VITALS: BP 168/71
--- NOTE | 2019-05-25 05:40 | NUR ---
RESTED WELL, AT 0500 REPORTED TO NURSE THAT HE FELT TIGHTNESS IN HIS LOWER CHEST/UPPER ABDOMEN REGION, VS WERE STABLE, EDUCATION PROVIDED REGARDING PROCEDURE OF LAP ANISA, GOT UP AND AMBULATED WITH THIS NURSE TO HELP WITH EXTRA GAS EXPELLING, HE WAS ABLE TO WALK 100+ FT WITH EASE, WILL NOTE ANY CHANGE.
[2019-05-25 06:33] LABS: BASOPHILS 0.4 % (0-2); EOSINOPHILS 1.7 % (0-7); HEMATOCRIT 36.2 % (42.0-54.0); HEMOGLOBIN 12.2 g/dL (13.5-17.5); IMMATURE GRANULOCYTES 0.2 % (0-5); LYMPHOCYTES 8.7 % (15-50); MCH 28.9 pg (26.0-34.0); MCHC 33.7 g/dL (31.0-37.0); MCV 85.8 fL (80.0-100.0); MEAN PLATELET VOLUME 11.5 fL (7.4-10.4); MONOCYTES 12.3 % (2-11); NEUTROPHILS 76.7 % (40-80); PLATELET COUNT 194 10x3/uL (130-400); RBC 4.22 10x6/uL (4.20-6.10); RDW 14.2 % (11.5-14.5)
[2019-05-25 06:41] LABS: WBC 9.4 10x3/uL (4.8-10.8)
[2019-05-25 06:50] LABS: ALBUMIN 2.7 g/dL (3.4-5.0); ANION GAP 11.3 mmol/L (8-16); BILIRUBIN - TOTAL 3.87 mg/dL (0.2-1.3); CARBON DIOXIDE 26.4 mmol/L (21.0-32.0); CREATININE - SERUM 1.1 mg/dL (0.6-1.3); POTASSIUM - SERUM 3.7 mmol/L (3.5-5.1); PROTEIN - SERUM 6.5 g/dL (6.4-8.2)
--- NOTE | 2019-05-25 09:20 | MORECARE ---
CASE MANAGEMENT DISCHARGE SUMMARY PATIENT: ARELIS OTT UNIT: [id number] ADM DATE: 05/22/19 AGE: 73 : 46 SEX: M ROOM/BED: D.2240 AUTHOR: ALBAN,DOC PHYSICIAN: REFERRING PHYSICIAN: HOMERO ROBERTS MD DATE OF SERVICE: 05/25/19 Discharge Plan Patient Name: ARELIS OTT Facility: [facility]:[place] : 1945 Planned Disposition: Home Anticipated Discharge Date: Discharge Date: Expected LOS: Initial Reviewer: [email or web address] Initial Review Date: 05/23/2019 Generated: 05/25/19 10:20 am Comments DCP- Discharge Planning Updated by [email or web address]: Yadira Smith on 05/23/19 3:[address] Patient Name: ARELIS OTT Admission Status: ER Accout number: [id number] Admission Date: 05-22-2019 : 1945 Admission Diagnosis: Attending: HOMERO ROBERTS Current LOS: 1 Anticipated DC Date: Planned Disposition: Home Primary Insurance: [employer] ADMINISTRATION Discharge Planning Comments: CM met with patient to complete initial dc planning assessment. CM educated patient on the CM role and verbal consent given by patient to complete assessment. Patient lives at home alone. At discharge patient plans to return and feels this is a safe discharge. CM discussed availability of home health, rehab services, and medical equipment. Patient denied known discharge needs at this time. I spoke with the VA baseball pitcher and informed her of admission. She is to fax me a paper for patient to sign stating that he would consent to transfer. CM will continue to follow and will assist as needed with dc plans/needs. Territory Sales Representative: Yadira Smith DCPIA - Discharge Planning Initial Assessment Updated by [email or web address]: Yadira Smith on 05/23/19 4:33 pm * Is the patient Alert and Oriented? Yes * How many steps to enter\exit or inside your home? 0/0 * PCP [place] doctor in [facility] or [place] * Pharmacy [facility] on [address] * Preadmission Environment Home Alone * ADLs Independent * Equipment None * List name and contact numbers for known caregivers / representatives who currently or will assist patient after discharge: Nima rowley - [phone] * Verbal permission to speak to the caregivers and representatives has been obtained from the patient. Yes * Community resources currently utilized [facility] Services * Please name any agencies selected above. [place] or [facility] * Additional services required to return to the preadmission environment? No * Can the patient safely return to the preadmission environment? Yes * Has this patient been hospitalized within the prior 30 days at any hospital? Yes External Providers External Provider: OTHER-OTHER Next Contact Date: Service Request Date: Service Type: Resolution: Reviewer: Comments: Last DP export: 05/23/19 3:39 p Patient Name: ARELIS OTT Page 95022 at 0920 All edits/amendments must be made on the electronic document DICTATION DATE: 05/25/19918 MUSEUM EXHIBIT TECHNICIAN: RAFAEL 05/25/19918 RPT#: [id number] DC DATE: STATUS: ADM IN [facility] [address] [place] [address] END OF REPORT
[2019-05-25 09:39] VITALS: BP 149/68
[2019-05-25 11:56] VITALS: BP 150/63
[2019-05-25 15:45] VITALS: BP 123/45
[2019-05-25 20:00] VITALS: BP 154/69
[2019-05-26] VITALS: BP 147/66
--- NOTE | 2019-05-26 03:45 | NUR ---
PT RESTING IN BED. EYES CLOSED. NO SIGNS OF DISTRESS. BREATHING EVEN AND UNLABORED. IV SITE RT WRIST DRESSING CLEAN DRY AND INTACT. NO SIGNS OF INFECTION. BOWEL SOUNDS ACTIVE. PT STATES PASSING GAS BUT NO BM YET. ABD INCISIONS CLEAN DRY AND INTACT. WILL CONTINUE PLAN OF CARE. CALL LIGHT IN REACH. BED LOWERED AND LOCKED. BED RAILS UPX1.
[2019-05-26 04:00] VITALS: BP 135/64
--- NOTE | 2019-05-26 04:05 | NUR ---
I have reviewed this patient and I concur with the Shift Assessment completed by the Licensed Practical Nurse today this shift.
[2019-05-26 06:36] LABS: BASOPHILS 0.4 % (0-2); HEMATOCRIT 34.6 % (42.0-54.0); HEMOGLOBIN 11.7 g/dL (13.5-17.5); IMMATURE GRANULOCYTES 0.6 % (0-5); LYMPHOCYTES 10.6 % (15-50); MCH 29.1 pg (26.0-34.0); MCHC 33.8 g/dL (31.0-37.0); MCV 86.1 fL (80.0-100.0); MONOCYTES 12.4 % (2-11); PLATELET COUNT 190 10x3/uL (130-400); RBC 4.02 10x6/uL (4.20-6.10); RDW 14.3 % (11.5-14.5); WBC 11.3 10x3/uL (4.8-10.8)
[2019-05-26 07:04] LABS: ALBUMIN 2.5 g/dL (3.4-5.0); ANION GAP 12.4 mmol/L (8-16); BILIRUBIN - TOTAL 4.24 mg/dL (0.2-1.3); CARBON DIOXIDE 25.2 mmol/L (21.0-32.0); CREATININE - SERUM 1.1 mg/dL (0.6-1.3); POTASSIUM - SERUM 3.6 mmol/L (3.5-5.1); PROTEIN - SERUM 6.2 g/dL (6.4-8.2)
--- NOTE | 2019-05-26 07:10 | NUR ---
REC'D SITTING IN CHAIR IN ROOM AWAKE AND ALERT. RESP EVEN AND UNLABORED WITH NO DISTRESS NOTED OR VOICED. CAN EXPRESS NEEDS AND WANTS. NO C/O NOTED OR VOICED. ASSESSMENT COMPLETED. C/L IN REACH AT BEDSIDE.
[2019-05-26 08:21] VITALS: BP 182/77
--- NOTE | 2019-05-26 09:20 | NUR ---
CALL AND SPOKE WITH DR. BEDOLLA ABOUT THE REASONING FOR PT RECEIVING GLUCGEN 1 MG X ONE DOSE. STATED THAT IT IS FOR THE STONE THAT PT HAS. NURSE VOICE UNDERSTANDING. C/L REACH AT BEDSIDE.
[2019-05-26] MEDS ORDERED: MEFOXIN IV (09:56)
[2019-05-26 11:38] VITALS: BP 134/62
--- NOTE | 2019-05-26 11:53 | MORECARE ---
CASE MANAGEMENT DISCHARGE SUMMARY PATIENT: ARELIS OTT UNIT: [id number] ADM DATE: 05/22/19 AGE: 73 : 46 SEX: M ROOM/BED: D.2240 AUTHOR: ASPEN PHOENIX PHYSICIAN: REFERRING PHYSICIAN: HOMERO ROBERTS MD DATE OF SERVICE: 05/26/19 Discharge Plan Patient Name: ARELIS OTT Facility: [facility]:[place] : 1945 Planned Disposition: Home Anticipated Discharge Date: Discharge Date: Expected LOS: Initial Reviewer: [email or web address] Initial Review Date: 05/23/2019 Generated: 05/26/19 12:53 pm Comments DCP- Discharge Planning Updated by [email or web address]: Yadira Murphyal on 05/26/19 10:[address] Received order for transfer. I have spoke with patient and his ex in the room. They prefer to use their Medicare benefits and would like [facility] in [place] or [facility] in [place] if possible. I called the transfer team and informed of patient's wishes. No GI coverage at [facility] in [place], so they will start with [facility]. I have asked for his films on CD to accompany the patient. CM will continue to follow and assist with discharge planning/needs. DCP- Discharge Planning Updated by [email or web address]: Yadira Smith on 05/23/19 3:[address] Patient Name: ARELIS OTT Admission Status: ER Accout number: [id number] Admission Date: 05-22-2019 : 1945 Admission Diagnosis: Attending: HOMERO ROBERTS Current LOS: 1 Anticipated DC Date: Planned Disposition: Home Primary Insurance: [facility] ADMINISTRATION Discharge Planning Comments: CM met with patient to complete initial dc planning assessment. CM educated patient on the CM role and verbal consent given by patient to complete assessment. Patient lives at home alone. At discharge patient plans to return and feels this is a safe discharge. CM discussed availability of home health, rehab services, and medical equipment. Patient denied known discharge needs at this time. I spoke with the VA roofer gypsum and informed her of admission. She is to fax me a paper for patient to sign stating that he would consent to transfer. CM will continue to follow and will assist as needed with dc plans/needs. Template Inspector: Yadira Murphyal DCPIA - Discharge Planning Initial Assessment Updated by [email or web address]: Yadira Luis on 05/23/19 4:33 pm * Is the patient Alert and Oriented? Yes * How many steps to enter\exit or inside your home? 0/0 * PCP [place] doctor in [facility] or [place] * Pharmacy [facility] on [address] * Preadmission Environment Home Alone * ADLs Independent * Equipment None * List name and contact numbers for known caregivers / representatives who currently or will assist patient after discharge: Nima Ott - [facility] - [phone] * Verbal permission to speak to the caregivers and representatives has been obtained from the patient. Yes * Community resources currently utilized [place] Services * Please name any agencies selected above. [place] or [facility] * Additional services required to return to the preadmission environment? No * Can the patient safely return to the preadmission environment? Yes * Has this patient been hospitalized within the prior 30 days at any hospital? Yes External Providers External Provider: [facility] Next Contact Date: Service Request Date: Service Type: Resolution: Reviewer: Comments: Last DP export: 05/25/19 8:20 a Patient Name: ARELIS OTT Page 01991 at 1153 All edits/amendments must be made on the electronic document DICTATION DATE: 05/26/19 115 AUDIT MGR: RAFAEL 05/26/19 1153 RPT#: [id number] DC DATE: STATUS: ADM IN [facility] [address] [place] [address] END OF REPORT
--- NOTE | 2019-05-26 14:24 | NUR ---
MEDICATED WITH APAP 650 MG PER ORDERS FOR C/O HEADACHE. C/L IN REACH AT BEDSIDE.
--- NOTE | 2019-05-26 15:18 | NUR ---
PATIENT STATED ADD CAN [place] TO HIPAA LIST TO BE ABLE TO RECEIVE INFORMATION ABOUT PATIENT MEDICAL RECORDS.
--- NOTE | 2019-05-26 15:45 | NUR ---
PT PULLED IV OUT AND REFUSED TO BE RESITED D/T SUPPOSED TO BED TRANSFERRED TO ANOTHER HOSPITAL. AND C/L IN REACH AT BEDSIDE.
[2019-05-26 16:25] VITALS: BP 141/54
--- NOTE | 2019-05-26 16:36 | MORECARE ---
CASE MANAGEMENT DISCHARGE SUMMARY PATIENT: ARELIS OTT UNIT: [id number] ADM DATE: 05/22/19 AGE: 73 : 46 SEX: M ROOM/BED: D.2240 AUTHOR: ASPEN PHOENIX PHYSICIAN: REFERRING PHYSICIAN: HOMERO ROBERTS MD DATE OF SERVICE: 05/26/19 Discharge Plan Patient Name: ARELIS OTT Facility: [facility]:[place] : 1945 Planned Disposition: Home Anticipated Discharge Date: Discharge Date: Expected LOS: Initial Reviewer: [email or web address] Initial Review Date: 05/23/2019 Generated: 05/26/19 5:36 pm Comments DCP- Discharge Planning Updated by [email or web address]: Flower Early on 05/26/19 3:[address] [facility] WITH TRANSFER CENTER STATED THAT DR ROBERTS HAS CANCELLED THE TRANSFER AND HE WILL MONITOR LABS AT THIS POINT. THIS IS CMING FROM LAMBERTO MILLAN SPEAKING WITH DR ROBERTS DCP- Discharge Planning Updated by [email or web address]: Yadira Smith on 05/26/19 10:[address] Received order for transfer. I have spoke with patient and his ex in the room. They prefer to use their Medicare benefits and would like [facility] in [place] or [facility] in [place] if possible. I called the transfer team and informed of patient's wishes. No GI coverage at [facility] in [place], so they will start with [facility]. I have asked for his films on CD to accompany the patient. CM will continue to follow and assist with discharge planning/needs. DCP- Discharge Planning Updated by [email or web address]: Yadira Smith on 05/23/19 3:[address] Patient Name: ARELIS OTT Admission Status: ER Accout number: [id number] Admission Date: 05-22-2019 : 1945 Admission Diagnosis: Attending: HOMERO ROBERTS Current LOS: 1 Anticipated DC Date: Planned Disposition: Home Primary Insurance: [employer] ADMINISTRATION Discharge Planning Comments: CM met with patient to complete initial dc planning assessment. CM educated patient on the CM role and verbal consent given by patient to complete assessment. Patient lives at home alone. At discharge patient plans to return and feels this is a safe discharge. CM discussed availability of home health, rehab services, and medical equipment. Patient denied known discharge needs at this time. I spoke with the VA youth court judge and informed her of admission. She is to fax me a paper for patient to sign stating that he would consent to transfer. CM will continue to follow and will assist as needed with dc plans/needs. Die Mounter: Yadira Smith DCPIA - Discharge Planning Initial Assessment Updated by [email or web address]: Yadira Murphyal on 05/23/19 4:33 pm * Is the patient Alert and Oriented? Yes * How many steps to enter\exit or inside your home? 0/0 * [place]CP [place] doctor in [facility] or [place] * [facility] [address] * Preadmission Environment Home Alone * ADLs Independent * Equipment None * List name and contact numbers for known caregivers / representatives who currently or will assist patient after discharge: Nima Ott - son - [phone] * Verbal permission to speak to the caregivers and representatives has been obtained from the patient. Yes * Community resources currently utilized [place] Services * Please name any agencies selected above. [place] or [facility] * Additional services required to return to the preadmission environment? No * Can the patient safely return to the preadmission environment? Yes * Has this patient been hospitalized within the prior 30 days at any hospital? Yes Last DP export: 05/26/19 10:53 a Patient Name: ARELIS OTT Page 34511 at 1636 All edits/amendments must be made on the electronic document DICTATION DATE: 05/26/19 163 ADMINISTRATOR PESTICIDE: RAFAEL 05/26/19 1636 RPT#: [id number] DC DATE: STATUS: ADM IN [facility] [address] [place] [address] END OF REPORT
--- NOTE | 2019-05-26 16:59 | MORECARE ---
CASE MANAGEMENT DISCHARGE SUMMARY PATIENT: ARELIS OTT UNIT: [id number] ADM DATE: 05/22/19 AGE: 73 : 46 SEX: M ROOM/BED: D.2240 AUTHOR: ASPEN PHOENIX PHYSICIAN: REFERRING PHYSICIAN: HOMERO ROBERTS MD DATE OF SERVICE: 05/26/19 Discharge Plan Patient Name: ARELIS OTT Facility: [facility]:[place] : 1945 Planned Disposition: Home Anticipated Discharge Date: Discharge Date: Expected LOS: Initial Reviewer: [email or web address] Initial Review Date: 05/23/2019 Generated: 05/26/19 5:59 pm Comments DCP- Discharge Planning Updated by [email or web address]: Flower Early on 05/26/19 3:[address] [place] WITH EASY ADMIT CALLED AND STATED THAT HE HAS A BED AT [facility] ROOM [address]A [address] CASTRO ACCEPTING I CALLED DR ROBERTS TO VERIFY TRANSFER OR NO TRANSFER AND HE DOES NOT WANT HIM TRANSFERED AT THIS POINT. HE STATED THAT HE WILL COME TALK TO THE FAMILY I CALLED LEANN ROSE AND SPOKE WITH PRASAD FOR HER TO CANCEL THIS TRANSFER DCP- Discharge Planning Updated by [id number]: Flower Early on 05/26/19 3:[address] [place] WITH TRANSFER CENTER STATED THAT DR ROBERTS HAS CANCELLED THE TRANSFER AND HE WILL MONITOR LABS AT THIS POINT. THIS IS CMING FROM LAMBERTO MILLAN SPEAKING WITH DR ROBERTS DCP- Discharge Planning Updated by [email or web address]: Yadira Smith on 05/26/19 10:[address] Received order for transfer. I have spoke with patient and his ex in the room. They prefer to use their Medicare benefits and would like [facility] in [place] or [facility] in [place] if possible. I called the transfer team and informed of patient's wishes. No GI coverage at [facility] in [place], so they will start with [facility]. I have asked for his films on CD to accompany the patient. CM will continue to follow and assist with discharge planning/needs. DCP- Discharge Planning Updated by [email or web address]: Yadira Smith on 05/23/19 3:[address] Patient Name: ARELIS OTT Admission Status: ER Accout number: [id number] Admission Date: 05-22-2019 : 1945 Admission Diagnosis: Attending: HOMERO ROBERTS Current LOS: 1 Anticipated DC Date: Planned Disposition: Home Primary Insurance: [employer] Discharge Planning Comments: CM met with patient to complete initial dc planning assessment. CM educated patient on the CM role and verbal consent given by patient to complete assessment. Patient lives at home alone. At discharge patient plans to return and feels this is a safe discharge. CM discussed availability of home health, rehab services, and medical equipment. Patient denied known discharge needs at this time. I spoke with the VA worship leader and informed her of admission. She is to fax me a paper for patient to sign stating that he would consent to transfer. CM will continue to follow and will assist as needed with dc plans/needs. Marine Gear Keeper: Yadira Smith DCPIA - Discharge Planning Initial Assessment Updated by [email or web address]: Yadira Smith on 05/23/19 4:33 pm * Is the patient Alert and Oriented? Yes * How many steps to enter\exit or inside your home? 0/0 * PCP VA doctor in [facility] or [place] * Pharmacy [facility] on [address] * Preadmission Environment Home Alone * ADLs Independent * Equipment None * List name and contact numbers for known caregivers / representatives who currently or will assist patient after discharge: Nima Ott - amrik - [phone] * Verbal permission to speak to the caregivers and representatives has been obtained from the patient. Yes * Community resources currently utilized [place] [facility] * Please name any agencies selected above. [place] or [facility] * Additional services required to return to the preadmission environment? No * Can the patient safely return to the preadmission environment? Yes * Has this patient been hospitalized within the prior 30 days at any hospital? Yes Last DP export: 05/26/19 3:36 p Patient Name: ARELIS OTT Page 09254 at 4901 All edits/amendments must be made on the electronic document DICTATION DATE: 05/26/191658 BRAKE MECHANIC: RAFAEL 05/26/191658 RPT#: [id number] DC DATE: STATUS: ADM IN [facility] [address] [facility] [place] [address] END OF REPORT
[2019-05-26 20:00] VITALS: BP 173/77
[2019-05-27] VITALS: BP 106/58
--- NOTE | 2019-05-27 01:00 | NUR ---
PT VOICED THAT HE DID NOT WANT TO GET STUCK AGAIN AND HE FELT THAT HE DID NOT NEED AN IV. I TOLD HIM THAT HE HAD AN ABX AT [facility]. PT FINALLY AGREED TO ALLOW IV ATTEMP X3. AFTER UNSUCCESSFUL ATTEMPT PT ASKED IF HE COULD GET THE ABX ORALLY. WILL CALL IN THE MORNING TO CHANGE ROUTE. CONTIUE WITH PLAN OF CARE.
[2019-05-27 04:00] VITALS: BP 143/73
[2019-05-27 06:54] LABS: BASOPHILS 0.3 % (0-2); HEMATOCRIT 32.8 % (42.0-54.0); HEMOGLOBIN 10.9 g/dL (13.5-17.5); IMMATURE GRANULOCYTES 0.5 % (0-5); LYMPHOCYTES 12.8 % (15-50); MCH 28.8 pg (26.0-34.0); MCHC 33.2 g/dL (31.0-37.0); MCV 86.5 fL (80.0-100.0); MONOCYTES 9.7 % (2-11); NEUTROPHILS 68.7 % (40-80); PLATELET COUNT 197 10x3/uL (130-400); RBC 3.79 10x6/uL (4.20-6.10); RDW 14.3 % (11.5-14.5); WBC 10.4 10x3/uL (4.8-10.8)
[2019-05-27 07:05] LABS: ALBUMIN 2.1 g/dL (3.4-5.0); ALKALINE PHOSPHATASE 200 U/L (46-116); BILIRUBIN - TOTAL 2.39 mg/dL (0.2-1.3); CALCIUM 7.9 mg/dL (8.5-10.1); CARBON DIOXIDE 28.8 mmol/L (21.0-32.0); CHLORIDE - SERUM 107 mmol/L (98-107); CREATININE - SERUM 0.9 mg/dL (0.6-1.3); GLUCOSE 104 mg/dL (74-106); POTASSIUM - SERUM 3.7 mmol/L (3.5-5.1); PROTEIN - SERUM 5.8 g/dL (6.4-8.2); SODIUM 142 mmol/L (136-145); eGFR NON AFRICAN AMERICAN 88 mL/min (90-120)
[2019-05-27 07:06] LABS: ALT (SGPT) 220 U/L (10-68); CALC OSMOLALITY 283 mosm/kg (275-300); UREA NITROGEN 14 mg/dL (7-18)
--- NOTE | 2019-05-27 09:00 | NUR ---
ALERT AND ORIENTED X4 INCISION SITES TO ABDOMEN INTACT. BS NOTED X4. STATES IS HAVING FLATULANCE. IV RESTARTED TO RT FOREARM WITH 22G X2 STICKS. ABDOMEN DISTENDED WITH TENDERNESS NOTED. DILAUDID GIVEN FOR PAIN AND EFFECTIVE. ENCOURAGED TO USE CALL LIGHT FOR ASSIST.
[2019-05-27 09:04] VITALS: BP 177/93
[2019-05-27 17:04] VITALS: BP 174/81
--- NOTE | 2019-05-27 19:40 | NUR ---
PT SITTING UP IN BEDSIDE CHAIR WITHOUT DISTRESS. ALERT AND ORIENTED X4. LAP SITES TO ABD CDI. IV RIGHT FA INFUSING NS @ 50. DENIES PAIN OR NEEDS. CL IN REACH, WILL CTM
[2019-05-27 20:00] VITALS: BP 167/76
--- NOTE | 2019-05-27 22:00 | NUR ---
PT AMBULATED AROUND THIS NURSES STATION AND MED 2. UPON LAYING DOWN IN BED PT STATES PAIN IS INCREASING, RATED 4/10 AT THIS TIME. GAVE NORCO ORDERED. DENIES OTHER NEEDS. CL IN REACH, WILL CTM
[2019-05-28] VITALS: BP 160/74
[2019-05-28 04:00] VITALS: BP 156/78
[2019-05-28 06:36] LABS: BASOPHILS 0.6 % (0-2); HEMATOCRIT 33.8 % (42.0-54.0); HEMOGLOBIN 11.3 g/dL (13.5-17.5); IMMATURE GRANULOCYTES 0.3 % (0-5); LYMPHOCYTES 14.1 % (15-50); MCHC 33.4 g/dL (31.0-37.0); MCV 86.9 fL (80.0-100.0); MEAN PLATELET VOLUME 10.4 fL (7.4-10.4); MONOCYTES 10.4 % (2-11); NEUTROPHILS 64.6 % (40-80); PLATELET COUNT 229 10x3/uL (130-400); RBC 3.89 10x6/uL (4.20-6.10); RDW 14.5 % (11.5-14.5); WBC 9.7 10x3/uL (4.8-10.8)
[2019-05-28 06:51] LABS: ALBUMIN 2.4 g/dL (3.4-5.0); ALKALINE PHOSPHATASE 215 U/L (46-116); ALT (SGPT) 182 U/L (10-68); BILIRUBIN - TOTAL 1.94 mg/dL (0.2-1.3); CALC OSMOLALITY 283 mosm/kg (275-300); CALCIUM 7.8 mg/dL (8.5-10.1); CARBON DIOXIDE 25.3 mmol/L (21.0-32.0); CHLORIDE - SERUM 107 mmol/L (98-107); GLUCOSE 96 mg/dL (74-106); POTASSIUM - SERUM 3.6 mmol/L (3.5-5.1); PROTEIN - SERUM 5.7 g/dL (6.4-8.2); SODIUM 142 mmol/L (136-145); UREA NITROGEN 14 mg/dL (7-18); eGFR NON AFRICAN AMERICAN 78 mL/min (90-120)
[2019-05-28 08:35] VITALS: BP 176/80
--- NOTE | 2019-05-28 09:00 | NUR ---
ALERT AND ORIENTED X4. FABIEN INTACT TO ABDOMEN WITH BS NOTED X4. HYDROCODONE GIVEN FOR PAIN MANAGEMENT AND EFFECTIVE. IVF INFUSING TO RT. F/A INTACT ADN INFUSING AT PRESCRIBED RATE. LUNGS CTA AND HRRR. ENCOURAGED TO USE CALL LIGHT FOR ASSIST.
--- NOTE | 2019-05-28 11:51 | MORECARE ---
CASE MANAGEMENT DISCHARGE SUMMARY PATIENT: ARELIS OTT UNIT: [id number] ADM DATE: 05/22/19 AGE: 73 : 46 SEX: M ROOM/BED: D.2240 AUTHOR: ALBANDOC PHYSICIAN: REFERRING PHYSICIAN: HOMERO ROBERTS MD DATE OF SERVICE: 05/28/19 Discharge Plan Patient Name: ARELIS OTT Facility: [facility]:[place] : 1945 Planned Disposition: Home Anticipated Discharge Date: Discharge Date: Expected LOS: Initial Reviewer: [email or web address] Initial Review Date: 05/23/2019 Generated: 05/28/19 12:50 pm Comments DCP- Discharge Planning Updated by [email or web address]: Paris Brandon on 05/28/19 10:[address] Patient Name: ARELIS OTT Admission Status: ER Accout number: [id number] Admission Date: 05-22-2019 : 1945 Admission Diagnosis: Attending: HOMERO ROBERTS Current LOS: 6 Anticipated DC Date: Planned Disposition: Home Primary Insurance: MEDICARE A & B Discharge Planning Comments: CM MET WITH PATIENT ABOUT DC PLANS. STATES PLANS TO DC TO HOME TODAY AND HAS SOMEONE TO PICK HIM UP. DENIES ANY NEED FOR HH OR REHAB. STATES DOESN'T HAVE AND DOESN'T NEED ANY EQUIPMENT. IM SIGNED. CM TO FOLLOW AND ASSIST. Sprayer Leather: Paris Brandon DCP- Discharge Planning Updated by [email or web address]: Flower Early on 05/26/19 3:[address] [place] WITH LEANN ADMIT CALLED AND STATED THAT HE HAS A BED AT [facility] ROOM [address]A [address] CASTRO ACCEPTING I CALLED DR ROBERTS TO VERIFY TRANSFER OR NO TRANSFER AND HE DOES NOT WANT HIM TRANSFERED AT THIS POINT. HE STATED THAT HE WILL COME TALK TO THE FAMILY I CALLED LEANN ROSE AND SPOKE WITH PRASAD FOR HER TO CANCEL THIS TRANSFER DCP- Discharge Planning Updated by [email or web address]: Flower Early on 05/26/19 3:[address] PRASAD WITH TRANSFER CENTER STATED THAT DR ROBERTS HAS CANCELLED THE TRANSFER AND HE WILL MONITOR LABS AT THIS POINT. THIS IS CMING FROM LAMBERTO MILLAN SPEAKING WITH DR ORBERTS DCP- Discharge Planning Updated by [id number]: Yadira Smith on 05/26/19 10:[address] Received order for transfer. I have spoke with patient and his ex in the room. They prefer to use their Medicare benefits and would like [facility] in [place] or [facility] in [place] if possible. I called the transfer team and informed of patient's wishes. No GI coverage at [facility] in [place], so they will start with [facility]. I have asked for his films on CD to accompany the patient. CM will continue to follow and assist with discharge planning/needs. DCP- Discharge Planning Updated by [email or web address]: Yadira Smith on 05/23/19 3:[address] Patient Name: ARELIS OTT Admission Status: ER Accout number: [id number] Admission Date: 05-22-2019 : 1945 Admission Diagnosis: Attending: HOMERO ROBERTS Current LOS: 1 Anticipated DC Date: Planned Disposition: Home Primary Insurance: [facility] [employer] Discharge Planning Comments: CM met with patient to complete initial dc planning assessment. CM educated patient on the CM role and verbal consent given by patient to complete assessment. Patient lives at home alone. At discharge patient plans to return and feels this is a safe discharge. CM discussed availability of home health, rehab services, and medical equipment. Patient denied known discharge needs at this time. I spoke with the VA ortho/prosthetic aide and informed her of admission. She is to fax me a paper for patient to sign stating that he would consent to transfer. CM will continue to follow and will assist as needed with dc plans/needs. Sprayer Leather: Yadira Smith DCPIA - Discharge Planning Initial Assessment Updated by [email or web address]: Yadira Smith on 05/23/19 4:33 pm * Is the patient Alert and Oriented? Yes * How many steps to enter\exit or inside your home? 0/0 * PCP VA doctor in [facility] or [place] * Pharmacy [facility] on [address] * Preadmission Environment Home Alone * ADLs Independent * Equipment None * List name and contact numbers for known caregivers / representatives who currently or will assist patient after discharge: Nima Ott - amrik - [phone] * Verbal permission to speak to the caregivers and representatives has been obtained from the patient. Yes * Community resources currently utilized [facility] * Please name any agencies selected above. [place] or [facility] * Additional services required to return to the preadmission environment? No * Can the patient safely return to the preadmission environment? Yes * Has this patient been hospitalized within the prior 30 days at any hospital? Yes Coverage Notice Reviewer: [email or web address] Awais Brandon Notice Issued Date-Time: 05/28/2019 11:44 Notice Type: IM Discharge Notice Notice Delivered To: Patient Relationship to Patient: Rework Machine Operator Name: Delivery Method: HAND - Hand Delivered Ines Days: Prior Verbal Notification: Recipient Understood Notice: Yes Recipient Signature: Yes Med Rec Note Co-signed by Attending: Coverage Notice Comment: Last DP export: 05/26/19 3:59 p Patient Name: ARELIS OTT Page 05200 at 1151 All edits/amendments must be made on the electronic document DICTATION DATE: 05/28/19 1150 UTILIZATION MANAGEMENT NURSE: RAFAEL 05/28/19 1150 RPT#: [id number] DC DATE: STATUS: ADM IN [facility] [address] [place] [address] END OF REPORT
[2019-05-28] MEDS ORDERED: ULTRAM50 MG PO (12:55)
--- NOTE | 2019-05-28 14:08 | NUR ---
IV DISCONTINUED AND VERBALIZED UNDERSTANDING OF DISCHARGE INSTRUCTIONS. STABLE AT TIME OF DEPARTURE AND LEFT POV WITH FAMILY.
--- NOTE | 2019-05-29 15:56 | MORECARE ---
CASE MANAGEMENT DISCHARGE SUMMARY PATIENT: ARELIS OTT UNIT: [id number] ADM DATE: 05/22/19 AGE: 73 : 46 SEX: M ROOM/BED: D.2240 AUTHOR: ASPEN PHOENIX PHYSICIAN: REFERRING PHYSICIAN: HOMERO ROBERTS MD DATE OF SERVICE: 05/29/19 Discharge Plan Patient Name: ARELIS OTT Facility: [facility]:[place] : 1945 Planned Disposition: Home Anticipated Discharge Date: Discharge Date: 05/28/2019 Expected LOS: 0 Initial Reviewer: [email or web address] Initial Review Date: 05/23/2019 Generated: 05/29/19 4:56 pm Comments DCP- Discharge Planning Updated by [id number]: Paris Brandon on 05/28/19 10:[address] Patient Name: ARELIS OTT Admission Status: ER Accout number: [id number] Admission Date: 05-22-2019 : 1945 Admission Diagnosis: Attending: HOMERO ROBERTS Current LOS: 6 Anticipated DC Date: Planned Disposition: Home Primary Insurance: MEDICARE A & B Discharge Planning Comments: CM MET WITH PATIENT ABOUT DC PLANS. STATES PLANS TO DC TO HOME TODAY AND HAS SOMEONE TO PICK HIM UP. DENIES ANY NEED FOR HH OR REHAB. STATES DOESN'T HAVE AND DOESN'T NEED ANY EQUIPMENT. IM SIGNED. CM TO FOLLOW AND ASSIST. Regional Airline Pilot: Paris Brandon DCP- Discharge Planning Updated by [email or web address]: Flower Early on 05/26/19 3:[address] [place] WITH LEANN ADMIT CALLED AND STATED THAT HE HAS A BED AT [facility] ROOM 7A [address] CASTRO ACCEPTING I CALLED DR ROBERTS TO VERIFY TRANSFER OR NO TRANSFER AND HE DOES NOT WANT HIM TRANSFERED AT THIS POINT. HE STATED THAT HE WILL COME TALK TO THE FAMILY I CALLED LEANN ROSE AND SPOKE WITH PRASAD FOR HER TO CANCEL THIS TRANSFER DCP- Discharge Planning Updated by [email or web address]: Flower Early on 05/26/19 3:[address] PRAS[place] WITH TRANSFER CENTER STATED THAT DR ROBERTS HAS CANCELLED THE TRANSFER AND HE WILL MONITOR LABS AT THIS POINT. THIS IS CMING FROM LAMBERTO MILLAN SPEAKING WITH DR ROBERTS DCP- Discharge Planning Updated by [id number]: Yadira Smith on 05/26/19 10:[address] Received order for transfer. I have spoke with patient and his ex in the room. They prefer to use their Medicare benefits and would like [facility] in [place] or [facility] in [place] if possible. I called the transfer team and informed of patient's wishes. No GI coverage at [facility] in [place], so they will start with [facility]. I have asked for his films on CD to accompany the patient. CM will continue to follow and assist with discharge planning/needs. DCP- Discharge Planning Updated by [email or web address]: Yadira Smith on 05/23/19 3:[address] Patient Name: ARELIS OTT Admission Status: ER Accout number: [id number] Admission Date: 05-22-2019 : 1945 Admission Diagnosis: Attending: HOMERO ROBERTS Current LOS: 1 Anticipated DC Date: Planned Disposition: Home Primary Insurance: [facility] Discharge Planning Comments: CM met with patient to complete initial dc planning assessment. CM educated patient on the CM role and verbal consent given by patient to complete assessment. Patient lives at home alone. At discharge patient plans to return and feels this is a safe discharge. CM discussed availability of home health, rehab services, and medical equipment. Patient denied known discharge needs at this time. I spoke with the VA warehouse examiner and informed her of admission. She is to fax me a paper for patient to sign stating that he would consent to transfer. CM will continue to follow and will assist as needed with dc plans/needs. Regional Airline Pilot: Yadira Smith DCPIA - Discharge Planning Initial Assessment Updated by [email or web address]: Yadira Smith on 05/23/19 4:33 pm * Is the patient Alert and Oriented? Yes * How many steps to enter\exit or inside your home? 0/0 * PCP VA doctor in [facility] or [place] * Pharmacy [facility] on [address] * Preadmission Environment Home Alone * ADLs Independent * Equipment None * List name and contact numbers for known caregivers / representatives who currently or will assist patient after discharge: Nima Ott - son - [phone] * Verbal permission to speak to the caregivers and representatives has been obtained from the patient. Yes * Community resources currently utilized [facility] * Please name any agencies selected above. [place] or [facility] * Additional services required to return to the preadmission environment? No * Can the patient safely return to the preadmission environment? Yes * Has this patient been hospitalized within the prior 30 days at any hospital? Yes Coverage Notice Reviewer: [id number] - Paris Roma Notice Issued Date-Time: 05/28/2019 11:44 Notice Type: IM Discharge Notice Notice Delivered To: Patient Relationship to Patient: Cloth Layer Name: Delivery Method: HAND - Hand Delivered Ines Days: Prior Verbal Notification: Recipient Understood Notice: Yes Recipient Signature: Yes Med Rec Note Co-signed by Attending: Coverage Notice Comment: Last DP export: 05/28/19 10:51 am Patient Name: ARELIS OTT Page 06951 at 1556 All edits/amendments must be made on the electronic document DICTATION DATE: 05/29/19 1556 COLLECTOR OF PORT: RAFAEL 05/29/19 1556 RPT#: [id number] DC DATE:05/28/19 STATUS: DIS IN [facility] [address] [place] [address] END OF REPORT
== END 2019-05-28 14:09 | disposition home or self-care (01) | DRG 417 ==
LOC: D.ER 07:59 → D.MS 11:00
PROVIDERS: Emergency Medicine; Surgery; ADMIT Internal Medicine Nephrology; ATTEND Internal Medicine Nephrology
PROC: BF03YZZ Plain Radiography of Gallbladder and Bile Ducts using Other Contrast (ICD-10-PCS; 2019-05-24)
PROC: 0FT44ZZ Resection of Gallbladder, Percutaneous Endoscopic Approach (ICD-10-PCS; principal; 2019-05-24 11:00)
DX: K80.42 Calculus of bile duct with acute cholecystitis without obstruction (principal); I21.9 Acute myocardial infarction, unspecified; D62 Acute posthemorrhagic anemia; I25.10 Atherosclerotic heart disease of native coronary artery without angina pectoris; I10 Essential (primary) hypertension